=== PATIENT | female | born 1940 | race Caucasian/White ===

== ENCOUNTER → 2024-02-12 13:17 | Outpatient (REF) | payer OTHER, SELFPAY | LOC: RAD 13:17 | PROVIDERS: ATTENDING PHYSICIAN Nurse Practitioner Family | DX: M79.605 Pain in left leg (principal) | CPT/HCPCS: 93971 ==

== ENCOUNTER → 2024-03-01 08:18 | Outpatient (REF) | payer OTHER, SELFPAY | LOC: RAD 08:18 | PROVIDERS: ATTENDING PHYSICIAN Specialist; FAMILY PHYSICIAN Nurse Practitioner Primary Care | DX: Z96.652 Presence of left artificial knee joint (principal) | CPT/HCPCS: 78315; A9503 ==

== ENCOUNTER → 2024-05-16 10:12 | Outpatient (REF) | payer OTHER, SELFPAY | LOC: HWWDC 10:12 | PROVIDERS: ATTENDING PHYSICIAN Nurse Practitioner Adult Health; FAMILY PHYSICIAN Nurse Practitioner Primary Care | DX: C82.98 Follicular lymphoma, unspecified, lymph nodes of multiple sites (principal); D51.0 Vitamin B12 deficiency anemia due to intrinsic factor deficiency; Z12.31 Encounter for screening mammogram for malignant neoplasm of breast | CPT/HCPCS: 77063; 77067 ==

== ENCOUNTER 2024-06-10 10:25 | Inpatient (IN) | payer OTHER, SELFPAY ==
[2024-05-21 13:37] LABS: Hematocrit 39.9 % (37.0-47.0); Hemoglobin 13.1 g/dL (12.0-16.0); Mean Corp Hgb Conc. 32.8 g/dL (33.0-37.0); Mean Corpuscular Hgb 32.3 pg (27.0-31.0); Mean Corpuscular Volume 98.5 fL (81.0-99.0); Mean Platelet Volume 10.7 fL (7.4-10.4); Platelet Count 125 10^3/uL (130-400); Red Blood Cell Count 4.05 10^6/uL (4.20-5.40); Red Cell Dist. Width 12.5 % (11.5-14.5)
[2024-05-21 13:55] LABS: ALT (SGPT) 14 U/L (0-35); AST (SGOT) 21 U/L (14-36); Albumin 4.5 g/dl (3.5-5.0); Alkaline Phosphatase 112 U/L (38-126); Blood Urea Nitrogen 33 mg/dl (7-17); Calcium 10.1 mg/dl (8.4-10.2); Carbon Dioxide 29 mmol/L (22-30); Chloride 104 mmol/L (98-107); Glucose 103 mg/dl (70-99); Potassium 3.9 mmol/L (3.5-5.1); Sodium 139 mmol/L (135-145); Total Bilirubin 0.6 mg/dl (0.2-1.3); Total Protein 6.9 g/dl (6.3-8.2); eGFR > 60.00
[2024-05-21 13:58] VITALS: BMI 38.6
[2024-05-21 14:10] LABS: Glycohemoglobin (HgbA1c) 5.7 % (4.0-5.6)
[2024-05-31 10:32] VITALS: BMI 38.6
--- NOTE | 2024-06-05 15:47 | VNURNOTE ---
Left message on patient's cell phone and home phones regarding [facility] and post op plans.
--- NOTE | 2024-06-05 16:17 | VNURNOTE ---
Patient is scheduled for an elective Revision L TKA on 06/10/[address] Reese. Spoke with patient prior to surgery via telephone. Introduced role of [facility] liaison. Patient reports that she lives with her spouse in a one story home. Her daughter
will be available to assist with transportation.
There are 2 steps to enter. She currently functions independently and uses a cane. She is concerned about not being able to get in /out of car safely and requests home PT. She then plans on going to outpt PT at [facility] [address]
[place]
PCP is Myah Chino.
[facility] in [place]
Discussed post surgical plans. Reviewed anticipated length of stay and that goal is for her to return home at discharge.
Also reviewed outpatient PT. Patient is in agreement with tentative plan but feels she will need VN services.
Patient selects [facility]. She will have support from daughter and spouse (he uses a walker currently) when she goes home.
Referral placed in [facility].
Plan: [facility] then Outpt PT
[2024-06-10] VITALS (10 sets, daily range): BP systolic 136–180; BP diastolic 81–100; BMI 38.6
[2024-06-10] MEDS: TYLENOL 650 MG PO ×2 (12:03→20:32)
[2024-06-10] MEDS: CELEBREX 200 MG PO (12:03)
--- NOTE | 2024-06-10 13:17 | W.DS.TRANS ---
DC Summary - Cell Biologist
-
Discharge Instructions:
Sleep Apnea Risk Intermediate
Discharge Diagnosis/Procedures L TKA Revision Dr. Reese 06/10/24
Diet As tolerated
Activity With Walker
Driving Restrictions No driving
Bathing Restrictions OK to Shower
Other Services PT
Instructions:
Stand-Alone Forms:
Changes to Home Medications: Yes
Discharge Medications:
DC Medications w/original date entered in [employer]
famotidine 20 mg tablet 20 mg PO HS 05/10/11
pantoprazole 40 mg tablet,delayed release 40 mg PO DAILY #14 tabs 08/05/18
Ellura 36 mg PO DAILY 05/31/24
ascorbic acid (vitamin C) 500 mg tablet (Vitamin C) 500 mg PO DAILY 05/31/24
calcium carbonate 500 mg PO DAILY 05/31/24
methenamine hippurate 1 gram tablet 1 g PO BID 05/31/24
ramipril 5 mg capsule 5 mg PO HS 05/31/24
ramipril 5 mg capsule 10 mg PO DAILY 05/31/24
rosuvastatin 10 mg tablet 10 mg PO HS 05/31/24
turmeric 400 mg capsule 450 mg PO DAILY 05/31/24
zinc acetate 50 mg (zinc) capsule 50 mg PO DAILY 05/31/24
Saccharomyces boulardii 250 mg capsule (Florastor) 250 mg PO BID #1 cap 06/10/24
acetaminophen 325 mg capsule (Tylenol) 650 mg (2 x 325 mg) PO QID #2 caps 06/10/24
aspirin 325 mg tablet 325 mg PO DAILY blood clot prevention #1 tab 06/10/24
cefadroxil 500 mg capsule 500 mg PO BID infection prevention #14 caps 06/10/24
celecoxib 200 mg capsule 200 mg PO DAILY anti-inflammatory #14 caps 06/10/24
dexamethasone 4 mg tablet 4 mg PO BID inflammation #6 tabs 06/10/24
docusate sodium 100 mg capsule (Colace) 100 mg PO BID stool softner #1 cap 06/10/24
magnesium hydroxide 400 mg/5 mL oral suspension (Milk of Magnesia) 30 ml PO HS PRN Constipation #1 mL 06/10/24
sennosides 8.6 mg tablet (Senokot) 17.2 mg (2 x 8.6 mg) PO BID laxative #2 tabs 06/10/24
tramadol 50 mg tablet 50 mg PO Q6H PRN 1 tab moderate pain, 2 if severe #30 tabs 06/10/24
Home Medication Changes
aspirin 325 mg tablet 325 mg PO DAILY blood clot prevention #1 tab 06/10/24�
cefadroxil 500 mg capsule 500 mg PO BID infection prevention #14 caps 06/10/24�
celecoxib 200 mg capsule 200 mg PO DAILY anti-inflammatory #14 caps 06/10/24�
dexamethasone 4 mg tablet 4 mg PO BID inflammation #6 tabs 06/10/24�
tramadol 50 mg tablet 50 mg PO Q6H PRN 1 tab moderate pain, 2 if severe #30 tabs 06/10/24�
Pending Results: No
[2024-06-10] MEDS: NORMOSOL-R/PLASMALYTE-A 1000 IV ×2 (16:47→17:45)
[2024-06-10] MEDS: ULTRAM 50 MG PO (16:57)
[2024-06-10] MEDS: TYLENOL PO (17:46)
[2024-06-10] MEDS: ASPIRIN 325 MG PO (17:48)
[2024-06-10] MEDS: PROTONIX 40 MG PO (17:48)
[2024-06-10] MEDS: ULTRAM 25 MG PO ×2 (17:48→22:02)
[2024-06-10] MEDS: BACTROBAN 2% OINTMENT 1 APPLIC NASAL (20:33)
[2024-06-10] MEDS: DECADRON 4 MG PO (20:33)
[2024-06-10] MEDS: TORADOL 15 MG IV (20:33)
[2024-06-10] MEDS: SENOKOT 17.2 MG PO (20:33)
[2024-06-10] MEDS: COLACE 100 MG PO (20:33)
[2024-06-10] MEDS: CRESTOR 10 MG PO (22:03)
[2024-06-10] MEDS: ANCEF 5 IV (22:03)
[2024-06-10] MEDS: NEURONTIN 300 MG PO (22:03)
[2024-06-10] MEDS: PEPCID 20 MG PO (22:06)
[2024-06-11] MEDS: TYLENOL 650 MG PO ×3 (00:02→12:54)
[2024-06-11] MEDS: TYLENOL PO (04:54)
[2024-06-11] MEDS: ANCEF 5 IV (05:07)
[2024-06-11] MEDS: ULTRAM 50 MG PO (05:29)
[2024-06-11 07:25] VITALS: BP 156/98
[2024-06-11] MEDS: DECADRON 4 MG PO (08:49)
[2024-06-11] MEDS: PROTONIX 40 MG PO (08:49)
[2024-06-11] MEDS: ULTRAM 25 MG PO ×2 (08:50→12:53)
[2024-06-11] MEDS: COLACE 100 MG PO (08:50)
[2024-06-11] MEDS: CELEBREX 200 MG PO (08:50)
[2024-06-11] MEDS: BACTROBAN 2% OINTMENT 1 APPLIC NASAL (08:51)
[2024-06-11] MEDS: SENOKOT 17.2 MG PO (08:51)
[2024-06-11] MEDS: ASPIRIN 325 MG PO (08:51)
[2024-06-11] MEDS: TORADOL 15 MG IV (08:52)
[2024-06-11] MEDS: FLUSH (NSS) 2 FLUSH IV (08:53)
[2024-06-11 10:53] VITALS: BP 149/80; PULSE 78; O2SAT 95
[2024-06-11 11:15] VITALS: BP 130/70
--- NOTE | 2024-06-11 11:35 | CM ---
Met with pt at bedside
Pt reports she lives with her in a ranch style home; 12 steps to enter
Independent with ADL's, some assist with home needs, driving
DME - rolling walker, cane, shower chair
SNF - [place] [facility] in past
HH - no past hx
Has ride home at discharge
PCP - Myah Long
Pharm - [facility]
Discussed PT/OT recs - outpatient therapy. Has appt scheduled on 06/13. Has Rx for PT
Daughter plans to stay with pt for 2 weeks to assist as needed
Discussed IMM
Plan - anticipate home with outpatient PT
--- NOTE | 2024-06-11 12:25 | W.PN.ORTHO ---
Today's Communication / Plan
-
d/c
Assessment
.
Distal Motor Intact: Yes
Dressing:
Clean, dry and intact.
Plan
.
Surgery / Date: L TKA Revision Dr. Reese 06/10/24
DVT Prophylaxis: Aspirin
Activity:
Out of bed.
PT/OT
Discharge Plan: Home w/ Outpatient PT
Subjective
.
.:
Patient resting comfortably.
Vital Signs and Labs
.
Vital Signs and Labs:
Lab Results
05/21/24 13:10
05/21/24 13:10
Temp Pulse Resp BP Pulse Ox
97.7 F 82 18 130/70 96
06/11/24 11:15 06/11/24 11:15 06/11/24 11:15 06/11/24 11:15 06/11/24 11:15
Non-invasive Hgb result: 11.3
Physical Exam
-
HEENT: No pallor, cyanosis, or jaundice. Throat clear.
NECK: Supple. No JVD.
RESPIRATORY: Lungs clear to auscultation.
CVS: S1, S2 normal. RRR.� No murmur, rub or gallop.
ABDOMEN: Soft, non-tender. No distension. BS+/normal.
EXTREMITIES: strength equal, no calf pain with palpation
HEALTH ANALYST: AOx3. No focal deficits. inventory control planner grossly intact
== END 2024-06-11 13:20 | disposition home or self-care (01) | DRG 468 ==
LOC: 2 SOUTH 10:25
PROVIDERS: ADMITTING PHYSICIAN Specialist; FAMILY PHYSICIAN Nurse Practitioner Primary Care
PROC: 0SRW0J9 Replacement of Left Knee Joint, Tibial Surface with Synthetic Substitute, Cemented, Open Approach (ICD-10-PCS; 2024-06-10)
PROC: 0SPW0JZ Removal of Synthetic Substitute from Left Knee Joint, Tibial Surface, Open Approach (ICD-10-PCS; 2024-06-10)
DX: T84.033A Mechanical loosening of internal left knee prosthetic joint, initial encounter (principal); K76.0 Fatty (change of) liver, not elsewhere classified; I10 Essential (primary) hypertension; E66.01 Morbid (severe) obesity due to excess calories; Z68.37 Body mass index [BMI] 37.0-37.9, adult; E53.8 Deficiency of other specified B group vitamins; Y79.2 Prosthetic and other implants, materials and accessory orthopedic devices associated with adverse incidents; M17.12 Unilateral primary osteoarthritis, left knee; K21.9 Gastro-esophageal reflux disease without esophagitis; K44.9 Diaphragmatic hernia without obstruction or gangrene; E78.2 Mixed hyperlipidemia; N32.81 Overactive bladder; R73.03 Prediabetes; Z96.651 Presence of right artificial knee joint; Z79.899 Other long term (current) drug therapy; Z87.891 Personal history of nicotine dependence; Z85.3 Personal history of malignant neoplasm of breast; Z85.72 Personal history of non-Hodgkin lymphomas; Z87.440 Personal history of urinary (tract) infections; Z87.442 Personal history of urinary calculi; Z86.010 Personal history of colon polyps; Z88.1 Allergy status to other antibiotic agents; Z88.5 Allergy status to narcotic agent; Z88.8 Allergy status to other drugs, medicaments and biological substances; Z82.49 Family history of ischemic heart disease and other diseases of the circulatory system
CPT/HCPCS: 36415; 73560; 80053; 83036; 85027; 86850; 86900; 86901; 87070; 93005; 97162; 97166; 97535; C1713; C1762; C1776

== ENCOUNTER → 2024-09-12 14:39 | Outpatient (REF) | payer OTHER, SELFPAY | LOC: RAD 14:39 | PROVIDERS: ATTENDING PHYSICIAN Physician Assistant Surgical; FAMILY PHYSICIAN Internal Medicine | DX: M79.662 Pain in left lower leg (principal) | CPT/HCPCS: 93971 ==

== ENCOUNTER → 2025-03-23 09:47 | Outpatient (REF) | payer OTHER, SELFPAY | LOC: PAVMRI 09:47 | PROVIDERS: ATTENDING PHYSICIAN Physician Assistant Surgical; FAMILY PHYSICIAN Nurse Practitioner Primary Care | DX: M54.16 Radiculopathy, lumbar region (principal) | CPT/HCPCS: 72148 ==

== ENCOUNTER → 2025-05-23 13:14 | Outpatient (REF) | payer OTHER, SELFPAY | LOC: HWWDC 13:14 | PROVIDERS: ATTENDING PHYSICIAN Internal Medicine Hematology & Oncology; FAMILY PHYSICIAN Nurse Practitioner Primary Care | DX: Z12.31 Encounter for screening mammogram for malignant neoplasm of breast (principal); C82.98 Follicular lymphoma, unspecified, lymph nodes of multiple sites; D51.0 Vitamin B12 deficiency anemia due to intrinsic factor deficiency | CPT/HCPCS: 77063; 77067 ==

== ENCOUNTER → 2025-07-25 10:21 | Outpatient (REF) | payer OTHER, SELFPAY | LOC: HWRAD 10:21 | PROVIDERS: ATTENDING PHYSICIAN Nurse Practitioner Primary Care | DX: M85.89 Other specified disorders of bone density and structure, multiple sites (principal) | CPT/HCPCS: 77080 ==

== ENCOUNTER → 2025-08-05 15:12 | Outpatient (REF) | payer OTHER, SELFPAY | LOC: HWRAD 15:12 | PROVIDERS: ATTENDING PHYSICIAN Nurse Practitioner Primary Care | DX: C85.93 Non-Hodgkin lymphoma, unspecified, intra-abdominal lymph nodes (principal) | CPT/HCPCS: 76700 ==